=== PATIENT | female | born 1965 ===

== ENCOUNTER 2017-12-30 08:35 | Emergency (ER) | payer SELFPAY ==
[2017-12-30 08:43] VITALS: BP 131/84; PULSE 102; RESP 20; TEMP 99.2; O2SAT 98
--- NOTE | 2017-12-30 09:49 | C.PDOC ---
History Of Present Illness 52yo female, otherwise well, presents to ER with complaints of sore throat, ear pain, rhinorrhea, cough, bodyaches and fever since yesterday. Patient states she has a history of strep throat, which occurs once every couple years. She denies any nausea, vomiting, chest pain or shortness of breath. She has no other medical complaints. HPI: Influenza Time Seen by Provider: 12/30/17 09:09 Chief Complaint: ENT Problem Chief Complaint (Provider): Sore throat, ear pain History Per: Patient Exam Limitations: no limitations Have you had recent travel within the past 21 days to any of the following countries: [place], [place], [place] or [place]?: No Onset/Duration Of Symptoms: Days (1) Symptoms include: fever, sore throat Risk factors for flu complications: No: adult > 65 years, child < 5 years, child < 2 years, Past Medical History Reviewed: Historical Data, Nursing Documentation, Vital Signs Vital Signs: Last Vital Signs Temp 99.2 F 12/30/17 08:40 Pulse 102 H 12/30/17 08:40 Resp 20 12/30/17 08:40 BP 131/84 12/30/17 08:40 Pulse Ox 98 12/30/17 08:40 - Medical History PMH: No Chronic Diseases Surgical History: Cholecystectomy Family History: States: No Known Family Hx - Social History Hx Alcohol Use: Yes Hx Substance Use: No - Immunization History Hx Influenza Vaccination: No Hx Pneumococcal Vaccination: No Review Of Systems Except As Marked, All Systems Reviewed And Found Negative. Constitutional: Positive for: Fever, Other (bodyaches) ENT: Positive for: Ear Pain, Nose Discharge, Throat Pain Cardiovascular: Negative for: Chest Pain Respiratory: Positive for: Cough. Negative for: Shortness of Breath Gastrointestinal: Negative for: Nausea, Vomiting Physical Exam - Physical Exam Appears: Non-toxic, No Acute Distress Skin: Normal Color, Warm, Dry Head: Normacephalic Eye(s): bilateral: Normal Inspection Ear(s): Bilateral: Normal Nose: Other (boggy nares) Oral Mucosa: Moist Throat: Erythema, Exudate Neck: Normal ROM, Supple Chest: Symmetrical Cardiovascular: Rhythm Regular Respiratory: Normal Breath Sounds, No Wheezing Gastrointestinal/Abdominal: Normal Exam, Soft, No Tenderness Neurological/Psych: Oriented x3, Normal Speech, Normal Cognition Medical Decision Making Medical Decision Making: Impression: Influenza like illness Plan: -- Tylenol 975 mg PO -- Motrin 600 mg PO -- Tamiflu 70 mg PO -- Penicillin VK 1000 mg PO Patient to be discharged home with prescription for antibitoics; informed to stay well hydrated and to follow up with PCP in 2-3 days. - ECG O2 Sat by Pulse Oximetry: 98 Disposition Counseled Patient/Family Regarding: Diagnosis, Need For Followup, Rx Given - Disposition Referrals: [facility] [Outside] Disposition: HOME/ ROUTINE Disposition Time: 09:47 Condition: STABLE Additional Instructions: Siga con gustafson doctor o la clinica. Prescriptions: Ibuprofen [Motrin] 600 mg PO TID #15 tab Oseltamivir [Tamiflu] 1 cap PO BID #10 cap Instructions: Flu Forms: Gen Discharge Inst Honduran, [employer] (Honduran), Work Excuse - POA Present On Arrival: None - Clinical Impression Clinical Impression: Influenza - Scribe Statement The provider has reviewed the documentation as recorded by the Scribe (Madisyn Forrester) Provider Attestation: All medical record entries made by the Scribe were at my direction and personally dictated by me. I have reviewed the chart and agree that the record accurately reflects my personal performance of the history, physical exam, medical decision making, and the department course for this patient. I have also personally directed, reviewed, and agree with the discharge instructions and disposition.
== END 2017-12-30 09:58 | disposition home or self-care (01) ==
LOC: C.ER 08:35
DX: J11.1 Influenza due to unidentified influenza virus with other respiratory manifestations (principal)

== ENCOUNTER 2017-12-30 23:12 | Emergency (ER) | payer SELFPAY ==
[2017-12-30 23:33] VITALS: BP 111/67; PULSE 100; RESP 20; TEMP 100.4; O2SAT 97
--- NOTE | 2017-12-31 02:35 | C.PDOC ---
History Of Present Illness 52 year old female who was seen in the ER earlier today for flu and pharyngitis stating she was given a dose of penicillin here today but no Rx and complaining of increasing sore throat. Patient is requesting an Rx for penicillin. Denies any new acute complaints. Time Seen by Provider: 12/30/17 23:33 Chief Complaint (Nursing): Flu-like Symptoms History Per: Patient History/Exam Limitations: no limitations Onset/Duration Of Symptoms: Hrs Current Symptoms Are (Timing): Still Present Location Of Pain: Throat Sick Contacts (Context): None Associated Symptoms: Sore Throat. denies: Vomiting, Diarrhea Ear Symptoms: Bilateral: None Recent travel outside of the [place]: No Past Medical History Reviewed: Historical Data, Nursing Documentation, Vital Signs Vital Signs: Last Vital Signs Temp 100.4 F H 12/30/17 23:26 Pulse 100 H 12/30/17 23:26 Resp 20 12/30/17 23:59 BP 111/67 12/30/17 23:26 Pulse Ox 97 12/31/17 02:46 Surgical History: Cholecystectomy Family History: States: Unknown Family Hx - Social History Hx Alcohol Use: Yes Hx Substance Use: No - Immunization History Hx Influenza Vaccination: No Hx Pneumococcal Vaccination: No Review Of Systems Constitutional: Negative for: Fever ENT: Positive for: Throat Pain. Negative for: Nose Discharge Gastrointestinal: Negative for: Vomiting, Diarrhea Physical Exam - Physical Exam Appears: Non-toxic, No Acute Distress Skin: Normal Color, Warm, Dry Head: Atraumatic, Normacephalic Eye(s): bilateral: Normal Inspection Ear(s): Bilateral: Normal Nose: Normal Oral Mucosa: Moist Throat: Erythema, Exudate Neck: Normal, Supple Chest: Symmetrical, No Tenderness Cardiovascular: Rhythm Regular Respiratory: Normal Breath Sounds, No Rales, No Rhonchi, No Wheezing Neurological/Psych: Oriented x3, Normal Speech ED Course And Treatment O2 Sat by Pulse Oximetry: 97 (Room air) Pulse Ox Interpretation: Normal Progress Note: Patient is resting comfortably in no acute distress, another dose of penicillin administered here in the ER, Rx given, and advised to follow up with PMD. Disposition - Disposition Referrals: [facility] [Outside] Disposition: HOME/ ROUTINE Disposition Time: 23:35 Condition: STABLE Additional Instructions: Zuri liquidos Gargarir con agua tibia y anya o compre el spray de CHLORASEPTIC por la garganta Regresa si peor Prescriptions: Penicillin VK [Penicillin VK Tab] 1,000 mg PO BID #24 tab Instructions: Sore Throat, Adult (DC) Forms: [employer] (Cambodian) - Clinical Impression Clinical Impression: Pharyngitis - PA / [employer]MBRELLA [employer]ACHINE / Resident Statement MD/DO has reviewed & agrees with the documentation as recorded. - Scribe Statement The provider has reviewed the documentation as recorded by the Scribaiden Wang All medical record entries made by the Bladeibaiden were at my direction and personally dictated by me. I have reviewed the chart and agree that the record accurately reflects my personal performance of the history, physical exam, medical decision making, and the department course for this patient. I have also personally directed, reviewed, and agree with the discharge instructions and disposition.
== END 2017-12-30 23:59 | disposition home or self-care (01) ==
LOC: C.ER 23:12
DX: J02.9 Acute pharyngitis, unspecified (principal)

== ENCOUNTER 2018-03-14 09:30 | Emergency (ER) | payer OTHER ==
[2018-03-14 09:45] VITALS: BP 123/88; PULSE 95; RESP 20; TEMP 98.8; O2SAT 99
--- NOTE | 2018-03-14 10:09 | C.PDOC ---
History Of Present Illness 52 y/o female presents to the ER complaining of runny nose, non-productive cough , and sore throat which have been present for the past 3 days. Patient is also complaining of body aches. Patient denies having CP,SOB, vomiting, and diarrhea. Time Seen by Provider: 03/14/18 09:47 Chief Complaint (Nursing): Cough, Cold, Congestion History Per: Patient History/Exam Limitations: None Onset/Duration Of Symptoms: Days Current Symptoms Are (Timing): Still Present Severity: Moderate Past Medical History Reviewed: Historical Data, Nursing Documentation, Vital Signs Vital Signs: Last Vital Signs Temp 98.8 F 03/14/18 09:43 Pulse 95 H 03/14/18 09:43 Resp 20 03/14/18 09:43 BP 123/88 03/14/18 09:43 Pulse Ox 99 03/14/18 11:11 - Medical History PMH: No Chronic Diseases Surgical History: Cholecystectomy Family History: States: No Known Family Hx - Social History Hx Alcohol Use: Yes Hx Substance Use: No - Immunization History Hx Tetanus Toxoid Vaccination: No Hx Influenza Vaccination: No Hx Pneumococcal Vaccination: No Review Of Systems Except As Marked, All Systems Reviewed And Found Negative. Constitutional: Positive for: Malaise. Negative for: Fever, Chills ENT: Positive for: Nose Discharge, Throat Pain Cardiovascular: Negative for: Chest Pain Respiratory: Positive for: Cough. Negative for: Shortness of Breath Gastrointestinal: Negative for: Vomiting, Diarrhea Physical Exam - Physical Exam Appears: Non-toxic, Other (coughing occasionally, speaking in full sentences) Skin: Normal Color, Warm, Dry Head: Atraumatic, Normacephalic Eye(s): bilateral: Normal Inspection Ear(s): Bilateral: Normal Nose: Normal Oral Mucosa: Moist Throat: Normal, No Erythema, No Exudate Neck: Supple Chest: Symmetrical Cardiovascular: Rhythm Regular Respiratory: Normal Breath Sounds, No Rales, No Rhonchi, No Wheezing Neurological/Psych: Oriented x3 ED Course And Treatment O2 Sat by Pulse Oximetry: 99 (RA) Pulse Ox Interpretation: Normal Progress Note: Patient given Motrin PO, Sudafed PO, and Tessalon Perles PO. Patient discharged with precrpitions for Motrin, Sudafed, and Tessalon Perles and instructed to follow up with PMD/ Clinic in 1-2 days. Disposition Counseled Patient/Family Regarding: Diagnosis, Need For Followup, Rx Given - Disposition Referrals: [facility] [Outside] Disposition: HOME/ ROUTINE Disposition Time: 10:15 Condition: STABLE Additional Instructions: FOLLOW UP WITH YOUR DOCTOR/CLINIC IN 1-2 DAYS USE MEDICATIONS DIRECTED RETURN TO EMERGENCY ROOM IF SYMPTOMS WORSEN SEGUIMIENTO CON ISAAC MDICO / CLNICA EN 1-2 BETANCUR USE MEDICAMENTOS SEGN LO INDICADO REGRESE AL DUDLEY DE EMERGENCIA SI LOS SNTOMAS EMPEORAN Prescriptions: Benzonatate [Tessalon Perles] 100 mg PO BID PRN #15 sgl PRN Reason: Cough Ibuprofen [Motrin Tab] 600 mg PO Q6 PRN #30 tab PRN Reason: fever/pain Pseudoephedrine [Sudafed] 60 mg PO Q6 PRN #12 tab PRN Reason: Nasal Congestion Instructions: Viral Upper Respiratory Infection, Adult (DC) Forms: [employer] (Luxembourgish) Print Language: PORTUGUESE - Clinical Impression Clinical Impression: Upper respiratory infection, Viral disease - Scribe Statement The provider has reviewed the documentation as recorded by the Bladeibaiden Wilson Provider Attestation: All medical record entries made by the Scribe were at my direction and personally dictated by me. I have reviewed the chart and agree that the record accurately reflects my personal performance of the history, physical exam, medical decision making, and the department course for this patient. I have also personally directed, reviewed, and agree with the discharge instructions and disposition.
== END 2018-03-14 10:18 | disposition home or self-care (01) ==
LOC: C.ER 09:30
DX: J06.9 Acute upper respiratory infection, unspecified (principal); B34.9 Viral infection, unspecified